=== PATIENT | male | born 1955 | race Caucasian/White ===

== ENCOUNTER 2019-08-10 09:56 | Emergency (ER) | payer MEDICAID, MEDICARE ==
[~2019-08-10] VITALS: Ht 182.9 cm; Wt 98.6 kg
[2019-08-10 10:11] VITALS: BP 184/93
--- NOTE | 2019-08-10 10:21 | NUR ---
Note avelino in EDM - 08/10/19 at 1023 by [email or web address] PATIENT MARCELA BACK FROM TRIAGE WITH CHIEF COMPLAINT OF RIGHT KNEE PAIN STARTING A "FEW WEEKS AGO", WITH INTERMITTENT NUMBNESS, PULSES PRESENT. PATIENT DENIES RECENT TRAUMA
--- NOTE | 2019-08-10 10:29 | NUR ---
PATIENT BROUGHT BACK FROM TRIAGE WITH CHIEF COMPLAINT OF BEING OUT OF MEDS. THE PATIENT IS ALERT, ORIENTED, WARM AND DRY. OUT OF PSYCH MEDS. MOVED FROM [place] AND CHANGING OVER TO [employer]. HAS APPT ON 08/13 WITH ACCESS TO [facility] OMEPRAZOLE 20MG PROZAC 10MG GABAPENTIN 100MG
--- NOTE | 2019-08-10 10:44 | NUR ---
PATIENT ALSO REPORTS PAIN AND SKIN RASH IN GROIN AREA AND LEFT UPPER THIGH.
--- NOTE | 2019-08-10 11:14 | NUR ---
DISCHARGE INSTRUCTIONS REVIEWED.
== END 2019-08-10 11:16 | disposition home or self-care (01) ==
LOC: ED 11:07
DX: R21 Rash and other nonspecific skin eruption (principal); H53.9 Unspecified visual disturbance; Z87.891 Personal history of nicotine dependence
CPT/HCPCS: 99283

== ENCOUNTER 2019-08-10 16:04 | Emergency (ER) | payer MEDICARE ==
[~2019-08-10] VITALS: Ht 182.9 cm; Wt 97.7 kg
[2019-08-10 16:12] VITALS: BP 183/87
--- NOTE | 2019-08-10 16:34 | NUR ---
63 Y/O MALE PRESENTS TO ED WITH C/O SI. WHEN ASSESSING PT AND ASKED PT WHY HE WAS HERE PT STATES "I JUST TOLD HIM THE STORY. I'M NOT TELLING THE STORY AGAIN. I'M SUICIDAL." PT FOLDED ARMS AND DIDN'T TALK ANYMORE. ROOM SECURE. ALL SAFETY MEASURES OBTAINED. PT BELONGINGS BEING GATHERED BY TECH. SITTER AT DOORWAY.
--- NOTE | 2019-08-10 16:51 | NUR ---
PT ESCORTED TO ED ROOM 3, ROOM SECURED, PATIENT CHANGED INTO GOWN AND BELONGING PLACED IN LOCKER(2 BAGS). PATIENT STATES HE IS REALLY GETTING ANGRY. "I HAVE BEEN GOING AROUND TOWN ALL DAY TO GET MY MEDS PT STATES "I WANT TO LIVE, BUT IF I DON'T GET MY MEDS IM GOING TO DO IT"
--- NOTE | 2019-08-10 17:02 | NUR ---
PT CONTINUES TO NOT SPEAK TO THIS RN. PT LAYING ON LEFT LATERAL SIDE WITH BACK TOWARD DOOR. ALL SAFETY MEASURES OBTAINED. SITTER AT DOORWAY. PT WITHIN FULL VIEW.
--- NOTE | 2019-08-10 18:16 | NUR ---
pt continues to sleep on nick. myron. all safety measures obtained. will continue to monitor.
[2019-08-10 18:31] LABS: BASOPHILS # (AUTO) 0.09 x10^3/uL (0-0.1); BASOPHILS % (AUTO) 1 % (0-1); EOSINOPHILS # (AUTO) 0.36 x10^3/uL (0-0.4); EOSINOPHILS % (AUTO) 4 % (1-7); LYMPHOCYTES # (AUTO) 3.63 x10^3/uL (1-3.4); LYMPHOCYTES % (AUTO) 34 % (22-44); MD NO; MEAN CORPUSCULAR HEMOGLOBIN 30.4 pg (27.5-34.5); MEAN CORPUSCULAR HGB CONC 33.2 g/dL (33.2-36.2); MEAN CORPUSCULAR VOLUME 91.5 fL (81-97); MEAN PLATELET VOLUME 7.4 fL (7.4-10.4); MONOCYTES # (AUTO) 0.83 x10^3/uL (0.2-0.8); MONOCYTES % (AUTO) 8 % (2-9); NEUTROPHILS # (AUTO) 5.66 x10^3/uL (1.8-6.8); NEUTROPHILS % (AUTO) 54 % (42-75); PLATELET COUNT 307 x10^3/uL (130-400); RED BLOOD COUNT 5.12 x10^6/uL (4.38-5.82); RED CELL DISTRIBUTION WIDTH 12.9 % (9.4-14.8)
--- NOTE | 2019-08-10 18:31 | NUR ---
PT SPEAKING TO LUCAS OBREGON. PT STATES "I FEEL SAFE TO GO HOME. I'M NOT GOING TO KILL MYSELF. I JUST NEED SOME HELP WITH MY MEDS. IF YOU CAN GIVE ME SOME." PERRI
[2019-08-10 18:33] LABS: ALANINE AMINOTRANSFERASE 37 U/L (12-78); ALBUMIN 3.2 g/dL (3.4-5.0); ANION GAP 1 mmol/L (5-15); CHLORIDE 106 mmol/L (98-107); CREATININE 0.84 mg/dL (0.7-1.3); SALICYLATE LEVEL 3.2 mg/dL (2.8-20.0)
[2019-08-10 18:35] LABS: ALKALINE PHOSPHATASE 99 U/L (45-117); BILIRUBIN,TOTAL 0.5 mg/dL (0.2-1.0); TOTAL PROTEIN 7.5 g/dL (6.4-8.2)
--- NOTE | 2019-08-10 18:52 | NUR ---
BEDSIDE REPORT TO ANA Jones RN AND DERREK LOVING.
[2019-08-10] MEDS ORDERED: LORazepam 1MG TABLET PO ONE (19:00)
[2019-08-10] MEDS ORDERED: ARIPIPRAZOLE 10 MG TABLET ONE (19:15)
[2019-08-10] MEDS ORDERED: LORazepam 1MG TABLET ONE (19:22)
--- NOTE | 2019-08-10 19:34 | NUR ---
pt being agressive and rude with staff. PT given instructions to relax and treat stsff with respect. pt then yelled and cursed at the rn. security was called and will be dc from the hospital.
[2019-08-11] MEDS ORDERED: ARIPIPRAZOLE 10 MG TABLET PO SCH (09:00)
[2019-08-11] MEDS ORDERED: FLUOXETINE HCL 20 MG CAPSULE PO SCH (09:00)
== END 2019-08-10 19:57 | disposition home or self-care (01) ==
LOC: ED 19:49
DX: F41.1 Generalized anxiety disorder (principal); Z76.0 Encounter for issue of repeat prescription; Z72.9 Problem related to lifestyle, unspecified; Z75.9 Unspecified problem related to medical facilities and other health care; Z63.8 Other specified problems related to primary support group; Z91.14 Patient's other noncompliance with medication regimen; Z87.891 Personal history of nicotine dependence
CPT/HCPCS: 36415; 80053; 80307; 85025; 99283

== ENCOUNTER 2019-08-16 23:02 | Emergency (ER) | payer MEDICARE ==
[~2019-08-16] VITALS: Ht 182.9 cm; Wt 95.5 kg
[2019-08-16 23:03] VITALS: BP 159/90
--- NOTE | 2019-08-16 23:04 | NUR ---
PT WAS FOUND STEALING FOOD FROM THE [employer] BY SECURITY, SECURITY NOTES THAT AT THAT TIME PT TOLD SECURITY THAT HE HAD A KNIFE AND THAT HE WAS GOING TO KILL HIMSELF, REFUSED TO GIVE KNIFE TO SECURITY
--- NOTE | 2019-08-16 23:33 | NUR ---
ER MD [place] IN TO ASSESS
--- NOTE | 2019-08-16 23:40 | NUR ---
PT PROVIDED SKIN BARRIER CREAM AND A GAUZE WRAP FOR RASH ON UPPER LEFT THIGH
--- NOTE | 2019-08-17 00:15 | NUR ---
PT PROVIDED FOOD, STATES HE HASNT EATEN IN A FEW DAYS. PT TO BE DISCHARGED AFTER HE EATS.
--- NOTE | 2019-08-17 00:40 | NUR ---
PT STATES HE WANTS TO GO TO [facility]. PT PROVIDED A TAXI CAB VOUCHER TO [facility]
== END 2019-08-17 00:42 | disposition home or self-care (01) ==
LOC: ED 23:22
DX: F32.1 Major depressive disorder, single episode, moderate (principal); Z72.9 Problem related to lifestyle, unspecified; F41.1 Generalized anxiety disorder; F17.200 Nicotine dependence, unspecified, uncomplicated
CPT/HCPCS: 99284